=== PATIENT | male | born 1990 | race Caucasian/White ===

== ENCOUNTER 2017-10-27 13:42 | Emergency (ER) | payer SELFPAY ==
[~2017-10-27] VITALS: Ht 182.9 cm; Wt 91.0 kg
[2017-10-27] MEDS ORDERED: SODIUM CHLORIDE 0.9% 1,000 ML IV ONE (14:33)
[2017-10-27 14:57] VITALS: BP 105/63
== END 2017-10-27 17:16 | disposition left against medical advice (07) ==
LOC: ER 13:52
DX: T40.1X1A Poisoning by heroin, accidental (unintentional), initial encounter (principal); F11.188 Opioid abuse with other opioid-induced disorder; G92 Toxic encephalopathy; J98.9 Respiratory disorder, unspecified; I10 Essential (primary) hypertension; R73.9 Hyperglycemia, unspecified; S41.132A Puncture wound without foreign body of left upper arm, initial encounter; S51.031A Puncture wound without foreign body of right elbow, initial encounter; X58.XXXA Exposure to other specified factors, initial encounter; Y93.89 Activity, other specified; F17.210 Nicotine dependence, cigarettes, uncomplicated; K08.9 Disorder of teeth and supporting structures, unspecified; Y92.89 Other specified places as the place of occurrence of the external cause
CPT/HCPCS: 96360; 96361; 99285; J7030